=== PATIENT | female | born 1935 | race Caucasian/White ===

== ENCOUNTER 2020-05-27 12:21 | Emergency (ER) | payer MEDICARE, OTHER ==
[~2020-05-27] VITALS: Ht 165.1 cm; Wt 65.8 kg
== END 2020-05-27 15:00 | disposition home or self-care (01) ==
LOC: ED 12:21
DX: E86.0 Dehydration (principal); N17.9 Acute kidney failure, unspecified; Z88.5 Allergy status to narcotic agent; Z88.8 Allergy status to other drugs, medicaments and biological substances
CPT/HCPCS: 76770; 80053; 81001; 85025; 99284-25; J7030

== ENCOUNTER 2021-07-28 12:09 | Emergency (ER) | payer MEDICARE, OTHER ==
[~2021-07-28] VITALS: Ht 165.1 cm; Wt 63.5 kg
[2021-07-28] MEDS ORDERED: ATENOLOL50 MG PO (12:27)
[2021-07-28] MEDS ORDERED: AMLODIPINE BESYL5 MG PO (12:27)
[2021-07-28] MEDS ORDERED: LOSARTAN POTAS100 MG PO (12:27)
[2021-07-28] MEDS ORDERED: CLONAZEPAM0.5 MG PO (12:27)
[2021-07-28] MEDS ORDERED: OXYCODONE HCL10 MG PO (12:27)
[2021-07-28] MEDS ORDERED: LEVOTHYROXINE112 MCG PO (12:27)
[2021-07-28] MEDS ORDERED: PREDNISONE20 MG PO (12:27)
[2021-07-28] MEDS ORDERED: OMEPRAZOLE20 MG PO (12:27)
== END 2021-07-28 14:25 | disposition home or self-care (01) ==
LOC: ED 12:09
DX: K52.9 Noninfective gastroenteritis and colitis, unspecified (principal); I10 Essential (primary) hypertension; E07.9 Disorder of thyroid, unspecified; Z88.5 Allergy status to narcotic agent; Z88.8 Allergy status to other drugs, medicaments and biological substances; Z79.891 Long term (current) use of opiate analgesic; Z79.890 Hormone replacement therapy; Z79.52 Long term (current) use of systemic steroids
CPT/HCPCS: 80048; 83735; 85025; 99284-25; J7040

== ENCOUNTER 2022-02-15 07:59 | Emergency (ER) | payer MEDICARE, OTHER ==
[~2022-02-15] VITALS: Ht 165.1 cm; Wt 63.5 kg
[~2022-02-15 07:59] MED LIST: AMLODIPINE BESYL5 MG PO; ATENOLOL50 MG PO; CLONAZEPAM0.5 MG PO; LEVOTHYROXINE112 MCG PO; LOSARTAN POTAS100 MG PO; OMEPRAZOLE20 MG PO; OXYCODONE HCL10 MG PO; PREDNISONE20 MG PO
== END 2022-02-15 09:25 | disposition home or self-care (01) ==
LOC: ED 07:59
DX: L02.413 Cutaneous abscess of right upper limb (principal); I10 Essential (primary) hypertension; Z88.5 Allergy status to narcotic agent; Z88.8 Allergy status to other drugs, medicaments and biological substances; Z91.041 Radiographic dye allergy status; Z79.899 Other long term (current) drug therapy; Z79.52 Long term (current) use of systemic steroids
CPT/HCPCS: 10060; 87070; 99283-25

== ENCOUNTER 2024-05-19 17:52 | Emergency (ER) | payer MEDICARE, OTHER ==
[~2024-05-19] VITALS: Ht 165.1 cm; Wt 48.0 kg
[2024-05-19] MEDS ORDERED: LINEZOLID600 MG PO (18:09)
[2024-05-19 18:37] LABS: EOSINOPHILS 5.5 % (0-6); HEMATOCRIT 39.4 % (35.0-50.0); LYMPHOCYTES 21.8 % (24-44); MCH 29.1 (27-36); MCHC 32.9 g/dl (30-36); MCV 88.4 fl (81-99); MONOCYTES 7.3 % (0-12); NEUTROPHILS 64.4 % (39-80); PLATELET COUNT 242 K/uL (140-440); RBC 4.46 M/ul (4.3-5.7); RDW 14.4 (10.5-15.0)
[2024-05-19 18:55] LABS: ALBUMIN 3.8 g/dL (3.4-5.0); ALBUMIN/GLOBULIN RATIO 0.95 (1.1-2.4); ANION GAP 14.3 (7-21); BILIRUBIN, TOTAL 0.4 ng/dL (0.2-1.0); BUN/CREATININE RATIO 25.64 (6.0-28.6); CALCIUM 9.1 mg/dL (8.5-10.1); CREATININE, SERUM 0.78 mg/dL (0.55-1.02); POTASSIUM 4.3 mmol/L (3.5-5.1); PROTEIN, TOTAL 7.8 g/dL (6.4-8.2)
[2024-05-19 19:45] VITALS: BP 161/75
--- NOTE | 2024-05-21 19:05 | EKG ---
[facility] [address] [facility] [place], [place] [address] Signed Normal sinus rhythm with sinus arrhythmia Anterior infarct , age undetermined Abnormal ECG No previous ECGs available Confirmed by Tomasz Perry MD ([id number]) on 05/21/2024 7:05:31 PM Electronically Signed By: TOMASZ PERRY MD 05/21/24 1905 PATIENT NAME: WILTON COELLO Electrocardiogram DATE OF : 37 PHYSICIAN: TOMASZ PERRY MD REPORT #: [id number] REPORT IS CONFIDENTIAL AND NOT TO BE RELEASED WITHOUT AUTHORIZATION
== END 2024-05-19 19:46 | disposition home or self-care (01) ==
LOC: ED 17:52
PROVIDERS: Emergency Medicine
DX: I15.8 Other secondary hypertension (principal); R42 Dizziness and giddiness; T36.8X5A Adverse effect of other systemic antibiotics, initial encounter; I10 Essential (primary) hypertension; E07.9 Disorder of thyroid, unspecified; Z88.5 Allergy status to narcotic agent; Z91.041 Radiographic dye allergy status; Z88.1 Allergy status to other antibiotic agents; Z88.2 Allergy status to sulfonamides; Z88.8 Allergy status to other drugs, medicaments and biological substances; Z79.890 Hormone replacement therapy; Z79.899 Other long term (current) drug therapy
CPT/HCPCS: 36415; 80053; 83880; 84484; 85025; 93005; 93010; 99284